=== PATIENT | female | born 2000 | race Two or more races ===

== ENCOUNTER 2024-11-30 11:03 | Emergency (ER) | payer BC ==
[~2024-11-30] VITALS: Ht 170.2 cm; Wt 59.0 kg
== END 2024-11-30 12:32 | disposition home or self-care (01) ==
LOC: ER 11:05
DX: S71.152A Open bite, left thigh, initial encounter (principal); W54.0XXA Bitten by dog, initial encounter; Y93.01 Activity, walking, marching and hiking; Y92.89 Other specified places as the place of occurrence of the external cause; Y99.8 Other external cause status